=== PATIENT | female | born 1930 | race Caucasian/White ===

== ENCOUNTER 2017-12-15 14:50 | Outpatient (CLI) | payer MEDICARE, OTHER ==
--- NOTE | 2017-12-16 16:28 | Mammography Report ---
Reason: SCREENING MAMMO Procedure Date: 12/15/2017 Accession Number: [id number] / [id number] Procedure: HERNAN - Screening Mammo Dig Bilat CPT Code: FULL RESULT: EXAM: Screening Mammo Dig Bilat DATE: 12/15/2017 3:34 PM CLINICAL HISTORY: 87-year-old female presents for screening mammogram. TECHNIQUE: Bilateral CC and MLO views were obtained. COMPARISON: 12/13/2015, 08/18/2014, 08/18/2013, 04/17/2012. FINDINGS: The breasts demonstrate scattered fibroglandular densities bilaterally. No suspicious masses, clustered microcalcifications, or regions of architectural distortion are identified. IMPRESSION: Negative examination RECOMMENDATION: Routine annual screening unless otherwise clinically indicated. BIRADS CATEGORY 1: Negative STANDARD QUALIFYING STATEMENTS: 1. This examination was not reviewed with the aid of Computer-Aided Detection (CAD). 2. A negative or benign imaging report should not delay biopsy if clinically suspicious findings are present. Consider surgical consultation if warrented. More than 5% of cancers are not identified by imaging. 3. Dense breasts may obscure an underlying neoplasm. 4. This examination was reviewed without the aid of 3D breast imaging (tomosynthesis).
== END 2017-12-15 14:51 | disposition home or self-care (01) ==
LOC: DI 14:50
PROVIDERS: ATTEND Internal Medicine
DX: Z12.31 Encounter for screening mammogram for malignant neoplasm of breast (principal)
CPT/HCPCS: 77067

== ENCOUNTER 2017-12-15 14:51 | Outpatient (CLI) | payer MEDICARE, OTHER ==
--- NOTE | 2017-12-16 09:03 | DEXA Report ---
Reason: SCREENING Procedure Date: 12/15/2017 Accession Number: [id number] / [id number] Procedure: DEX - Dexa Spine and/or Hip CPT Code: FULL RESULT: EXAM: Dexa Spine and/or Hip DATE: 12/15/2017 3:25 PM CLINICAL HISTORY: SCREENING TECHNIQUE: Dual energy x-ray absorptiometry (DXA) was performed on a [employer] System. Regions measured are the AP Spine, femoral neck, and if needed forearm. COMPARISON: None. In accordance with the International Society for Clinical Densitometry (ISCD) guidelines, data from previous exams may be reanalyzed using current recommendations and techniques. This is done to allow a more accurate basis for comparison with the current study. FINDINGS: The data for the lumbar spine is as follows: BMD (g/cm/cm) T-SCORE Z-SCORE REGION L1 1.064 -0.6 1.2 L2 1.037 -1.4 0.4 L3 1.162 -0.3 1.4 L4 1.171 -0.2 1.5 TOTAL 1.115 -0.5 1.2 NOTE: All evaluable vertebrae are used for classification The data for the hip is as follows: BMD (g/cm/cm) T-SCORE Z-SCORE REGION Neck 0.902 -1.0 1.3 TOTAL 0.860 -1.2 1.0 NOTE: The femoral neck or total proximal femur, whichever is lowest, is used for classification. IMPRESSION: THE WHO CLASSIFICATION BASED ON THE INTERNATIONAL REFERENCE STANDARD IS OSTEOPENIA. THE FRACTURE RISK IS INCREASED. RECOMMENDATION: Patients with diagnosis of osteoporosis or osteopenia should have regular bone mineral density assessment. For those eligible for Medicare, routine testing is allowed once every 2 years. Testing frequency can be increased for patients who have rapidly progressing disease or for those who are receiving medical therapy to restore bone mass. COMMENT: World Health Organization (WHO) definitions for osteoporosis and osteopenia: NORMAL BMD: T-score at -1.0 or higher, fracture risk is low OSTEOPENIA BMD: T-score between -1.0 and -2.5, fracture risk is increased. OSTEOPOROSIS BMD: T-score at -2.5 or lower, fracture risk is high. National Osteoporosis Foundation recommends: 1. Obtain adequate dietary calcium (at least 1200 mg per day) and vitamin D (400-800 international units per day). 2. Participate, as appropriate, in regular weightbearing and muscle-strengthening exercise. 3. Avoid tobacco use and reduce alcohol and caffeine intake. 4. For more detailed information see the website at www.NOF.org.
== END 2017-12-15 14:52 | disposition home or self-care (01) ==
LOC: DI 14:51
PROVIDERS: ATTEND Internal Medicine
DX: M85.88 Other specified disorders of bone density and structure, other site (principal)
CPT/HCPCS: 77080

== ENCOUNTER 2018-12-24 09:49 | Outpatient (CLI) | payer MEDICARE, OTHER ==
--- NOTE | 2018-12-25 10:14 | Mammography Report ---
Reason: ANNUAL SCREENING Procedure Date: 12/24/2018 Accession Number: [id number] / [id number] Procedure: HERNAN - Screening Mammo Dig Bilat CPT Code: FULL RESULT: EXAM: Screening Mammo Dig Bilat DATE: 12/24/2018 10:26 AM CLINICAL HISTORY: Screening encounter. TECHNIQUE: (B) - Bilateral CC and MLO views were obtained. COMPARISON: 12/15/2017 through 09/28/2009. PARENCHYMAL PATTERN: (A) - The breast(s) demonstrate(s) scattered fibroglandular densities. FINDINGS: There are no suspicious masses, calcifications, or areas of distortion. IMPRESSION: Negative examination. BI-RADS category 1. RECOMMENDATION: (ANNUAL) - Recommend routine annual screening mammography. BI-RADS CATEGORY: (1) - Negative. STANDARD QUALIFYING STATEMENTS: 1. This examination was not reviewed with the aid of Computer-Aided Detection (CAD). 2. A negative or benign imaging report should not preclude biopsy if clinically suspicious findings are present. 3. Dense breasts may obscure an underlying neoplasm. 4. This examination was reviewed without the aid of 3D breast imaging (tomosynthesis).
== END 2018-12-24 09:50 | disposition home or self-care (01) ==
LOC: DI 09:49
PROVIDERS: ATTEND Internal Medicine
DX: Z12.31 Encounter for screening mammogram for malignant neoplasm of breast (principal)
CPT/HCPCS: 77067

== ENCOUNTER 2019-10-23 06:29 | Emergency (ER) | payer MEDICARE, OTHER ==
[2019-10-23] MEDS ORDERED: TETANUS/DIPHTHERIA/PERTUSSIS 0.5 ML SYRINGE IM ONE (07:54)
--- NOTE | 2019-10-23 07:57 | ED Physician Documentation ---
PD HPI LOWER EXT INJURY - Stated complaint Stated Complaint: LT FOOT PX/INJURY - Chief complaint Chief Complaint: Laceration - History obtained from History obtained from: Patient, Family - History of Present Illness PD HPI LOW EXT INJURY LOCATION: Left, Toe (2nd) Type of injury: Blunt / blow Where injury occurred: Home Timing - onset: Today Timing - duration: Minutes Timing - details: Abrupt onset, Still present Improved by: Rest Worsened by: Moving, Palpating Associated symptoms: No: Weakness, Numbness, Tingling Contributing factors: No: Anticoagulated Similar symptoms before: Has not had sx before Recently seen: Not recently seen - Additional information Additional information: 89-year-old female with a history of hypertension and peptic ulcer disease stubbed her left second toe and the nail is partially avulsed and bleeding. She is not up-to-date on her tetanus. She has mild pain associated with this and is able to bear weight. She has bad toenails that she has had all of her life growing [place] in [place] without a coupon for shoes. 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: Hysterectomy - Present Medications Home Medications: Ambulatory Orders Medication Instructions Recorded Confirmed Atenolol 100 mg PO DAILY 03/11/13 10/15/14 Hydrochlorothiazide 25 mg PO DAILY 03/11/13 10/15/14 Lisinopril 10 mg PO DAILY 03/11/13 10/15/14 raNITIdine [Zantac] 150 mg ORAL DAILY 06/07/14 10/15/14 Ferrous Sulfate 325 mg PO 10/15/14 10/15/14 Omeprazole 20 mg PO 10/15/14 10/15/14 - Allergies Allergies/Adverse Reactions: Allergies Allergy/AdvReac Type Severity Reaction Status Date / Time aspirin AdvReac Severe bleeding Verified 10/23/19 06:43 - Social History Does the pt smoke?: No Smoking Status: Never smoker Does the pt drink ETOH?: Yes Does the pt have substance abuse?: No - Immunizations Immunizations are current?: Yes - POLST Patient has POLST: No PD ED PE NORMAL - Vitals Vital signs reviewed: Yes (hypertensive ) - General General: Alert and oriented X 3, No acute distress, Well developed/nourished, Other (hard of hearing ) - HEENT HEENT: Atraumatic, PERRL, EOMI - Respiratory Respiratory: No respiratory distress - Derm Derm: Normal color, Warm and dry - Extremities Extremities: No edema, Other (The toes have onychomycosis onto all of them with markedly deformed nails that are long and have not been attended to. The second nail on the left footIs avulsed at the base and there is adhered skin to the nail at the tip of the toe.) Results - Vitals Vitals: Vital Signs - 24 hr 10/23/19 10/23/19 06:30 07:18 Temperature 36.8 C Heart Rate 96 71 Respiratory 18 18 Rate Blood Pressure 187/78 H 180/82 H O2 Saturation 100 97 Oxygen O2 Source [Without Activity] Room air O2 Source Room air Procedures - General procedure General procedure: Removal of nail. The onychomycotic nail is avulsed proximally and the proximal portion is grasped pulled forward and with blunt dissection and sharp dissection the nail is cut away from the skin of the tip of the toe. There is some bleeding associated with the nailbed and a piece of Gelfoam was placed over this which promptly stopped the bleeding and this is eventually removed a second piece is placed in a dressing is placed. Patient is given a tetanus booster. She tolerates this well with some pain associated with cutting the nail off. PD MEDICAL DECISION MAKING - ED course Complexity details: reviewed old records, re-evaluated patient, considered differential, d/w patient, d/w family ED course: 89-year-old female with a complete avulsion of the left second toenail tolerates this well she is given a tetanus booster expected to heal Departure - Departure Disposition: 01 Home, Self Care Clinical Impression: Nail avulsion of toe Qualifiers: Encounter type: initial encounter Qualified Code(s): S91.209A - Unspecified open wound of unspecified toe(s) with damage to nail, initial encounter Condition: Stable Instructions: ED Avulsion Nail Complete Follow-Up: Alvaro Campbell MD [Primary Care Provider] -
[2019-10-23 08:19] VITALS: BP 161/94
== END 2019-10-23 08:27 | disposition home or self-care (01) ==
LOC: ED 06:29
DX: S91.205A Unspecified open wound of left lesser toe(s) with damage to nail, initial encounter (principal); W22.09XA Striking against other stationary object, initial encounter; Y93.89 Activity, other specified; Y92.009 Unspecified place in unspecified non-institutional (private) residence as the place of occurrence of the external cause; B35.1 Tinea unguium; Z23 Encounter for immunization; I10 Essential (primary) hypertension
CPT/HCPCS: 11730; 90471; 99283; 99284